=== PATIENT | male | born 1955 | race Caucasian/White ===

== ENCOUNTER 2018-10-15 02:03 | Observation (INO) ==
[2018-10-15] MEDS ORDERED: ONDANSETRON 4 MG/2 ML VIAL IV ONE (02:11)
[2018-10-15] MEDS ORDERED: CLINDAMYCIN 600 MG in DEXTROSE 5% IN WATER 50 ML IV ONE (02:11)
[2018-10-15] MEDS: HYDROmorphone 2 MG/ML VIAL IV PRN ×2 (02:22→02:45)
[2018-10-15] MEDS: LACTATED RINGERS 1,000 ML IV SCH ×3 (02:32→16:06)
[2018-10-15 03:00] LABS: Basophils # (Auto) 0 K/mcL (0.0-0.3); Basophils % (Auto) 0.3 % (0.0-2.0); Eosinophils # (Auto) 0.1 K/mcL (0.0-0.7); Eosinophils % (Auto) 0.4 % (0.0-7.0); Granulocytes % (Auto) 65.5 % (38.0-78.0); Lymphocytes % (Auto) 22.1 % (15.5-49.0); Mean Cell Volume 85.8 fL (80.0-100.0); Mean Corpuscular HGB Conc 33.3 g/dL (31.0-36.0); Monocytes # (Auto) 1.6 K/mcL (0.1-0.9); Monocytes % (Auto) 11.7 % (1.0-12.0); Platelet Count 256 K/mcL (140-440); RBC 5.25 M/mcL (4.50-5.90); Red Cell Distribution Width 13.5 % (11.5-14.5)
[2018-10-15 03:26] LABS: ALT/SGPT 24 U/l (0-40); Albumin 4.2 gm/dL (3.2-5.2); Albumin/Globulin Ratio 1.3 (1.0-2.3); Alkaline Phosphatase 79 U/L (39-117); Blood Urea Nitrogen 19 mg/dl (8-23)
--- NOTE | 2018-10-15 06:45 | Emergency Department Note ---
General Adult HPI - General Chief complaint: Extremity Problem,Nontraumatic Stated complaint: right knee pain Time Seen by Provider: 10/15/18 02:11 Source: patient Mode of arrival: wheelchair Limitations: no limitations - History of Present Illness HPI Narrative: This patient was seen in the emergency room and discharged home with septic arthritis of the right knee. He has plan to call Dr. Ibarra in the morning however the pain became unbearable so he returned to emergency room and is happy to have Dr. Hitchcock admit him for washout in the morning. - Related Data Home Medications Medication Instructions Recorded Confirmed amlodipine 5 mg tablet 5 mg PO QDAY 08/01/18 10/15/18 aspirin 81 mg tablet,delayed 81 mg PO QDAY 08/01/18 10/15/18 release atorvastatin 10 mg tablet 10 mg PO QDAY 08/01/18 10/15/18 duloxetine 20 mg capsule,delayed 40 mg PO QDAY 08/01/18 10/15/18 release hydrochlorothiazide 25 mg tablet 12.5 mg PO QDAY 08/01/18 10/15/18 Methocarbamol [Robaxin-750] 750 mg PO Q6HP PRN 10/14/18 10/15/18 Allergies Allergy/AdvReac Type Severity Reaction Status Date / Time No Known Drug Allergies Allergy Unverified 08/13/18 11:23 Review of Systems All systems ED: reviewed and negative except as stated. Past Medical History - Past Medical History PMF Narrative: Medical History (Last Reviewed 08/13/18 @ 11:25 by Tere Valdes RN) Abnormal ECG (Chronic) Left anterior fascicular block (Chronic) Incomplete right bundle branch block (Chronic) Pulmonary disease (Chronic) Actinic keratitis (Chronic) Bereavement (Chronic) Alcohol abuse (Chronic) Hearing loss (Chronic) Basal cell carcinoma (Chronic) Hypertension (Chronic) Genital warts (Chronic) DJD (degenerative joint disease) of knee (Chronic) Low vitamin D level (Chronic) PTSD (post-traumatic stress disorder) (Chronic) Depression (Chronic) ASCVD (arteriosclerotic cardiovascular disease) (Chronic) CKD (chronic kidney disease), stage III (Chronic) Lower urinary tract symptoms (LUTS) (Chronic) Frequency of urination (Chronic) Urgency of urination (Chronic) Incomplete emptying of bladder (Chronic) Nocturia (Chronic) Elevated PSA (Chronic) Past Surgical History (Last Reviewed 08/13/18 @ 11:25 by Tere Valdes RN) History of colonoscopy (Acute) History of appendectomy (Chronic) Family History (Last Reviewed 08/13/18 @ 11:25 by Tere Valdes RN) Brother Colon cancer Mother Alzheimer disease Father Heart failure Surgical history ED: Reports: knee replacement - Social History smoking status: Never smoker Physical Exam Right knee is less swollen than it was prior to the aspiration in a couple of hours ago. Limitations: no limitations General appearance: alert Head: atraumatic Neurological: Present: alert Psychiatric: Present: normal affect Skin: Present: warm, dry Course Vital Signs Temperature 97.4 F 10/15/18 02:04 Pulse Rate 71 10/15/18 02:04 Respiratory Rate 16 10/15/18 02:04 Pulse Oximetry (%) 99 10/15/18 02:04 Temperature 97.4 F 10/15/18 03:08 Pulse Rate 56 L 10/15/18 03:08 Respiratory Rate 16 10/15/18 03:08 Blood Pressure 168/100 10/15/18 03:08 Pulse Oximetry (%) 96 10/15/18 03:08 Medical Decision Making - Lab Data Result diagrams: 10/15/18 02:20 10/15/18 02:20 Lab Results 10/15/18 10/15/18 Range/Units 02:20 02:20 WBC 13.4 H (4.5-11.0) K/mcL RBC 5.25 (4.50-5.90) M/mcL Hgb 15.0 (13.5-16.5) g/dL Hct 45.1 (41.0-55.0) % MCV 85.8 (80.0-100.0) fL MCH 28.6 (26.0-34.0) pg MCHC 33.3 (31.0-36.0) g/dL RDW 13.5 (11.5-14.5) % Plt Count 256 (140-440) K/mcL MPV 9.0 (7.4-10.4) fL Gran % 65.5 (38.0-78.0) % Lymph % (Auto) 22.1 (15.5-49.0) % [place] % (Auto) 11.7 (1.0-12.0) % Eos % (Auto) 0.4 (0.0-7.0) % Baso % (Auto) 0.3 (0.0-2.0) % Gran # 8.8 H (1.8-8.0) K/mcL Lymph # (Auto) 3.0 (1.5-4.8) K/mcL [place] # (Auto) 1.6 H (0.1-0.9) K/mcL Eos # (Auto) 0.1 (0.0-0.7) K/mcL Baso # (Auto) 0 (0.0-0.3) K/mcL Sodium 137 (133-145) mmol/L Potassium 3.7 (3.3-5.1) mmol/L Chloride 97 (96-108) mmol/L Carbon Dioxide 22 (22-30) mmol/L Anion Gap 18.0 H (8-16) BUN 19 (8-23) mg/dl Creatinine 1.1 (0.7-1.2) mg/dl GFR Calculation 71 Glucose 119 H (70-105) mg/dL Calcium 9.3 (8.6-10.4) mg/dl Total Bilirubin 0.4 (0.0-1.0) mg/dL AST 15 (0-37) U/l ALT 24 (0-40) U/l Alkaline Phosphatase 79 (39-117) U/L Total Protein 7.4 (5.9-8.4) gm/dL Albumin 4.2 (3.2-5.2) gm/dL Globulin 3.2 (2.2-3.7) gm/dL Albumin/Globulin Ratio 1.3 (1.0-2.3) Disposition Pt seen by [facility] [employer]/PA only: No Clinical Impression: Septic arthritis of knee, right Disposition: Xfer As Outpt/Obs ([facility]) Condition: Good
[2018-10-15 07:00] LABS: Appearance,Urine CLEAR; Bacteria,Urine 0 /hpf (0); Bilirubin,Urine NEG (NEG); Color,Urine YELLOW; Glucose,Urine (UA) NEGATIVE (NEG); Leukocyte Esterase,Urine NEG /uL (NEG); Mucus,Urine FEW /hpf (0); Protein,Urine 30 mg/dL (NEG); Specific Gravity,Urine 1.019 (1.000-1.035); Urine Blood NEG mg/dL (<0.03); Urine Hyaline Cast 2 /lpf (0-2); Urine RBC < 1 /hpf (0-1); Urine Squamous Epithelial Cell < 1 /hpf (0-4); Urine WBC < 1 /hpf (0-4); Urobilinogen,Urine NEG (NEG)
[2018-10-15] MEDS ORDERED: COLCHICINE 0.6 MG TABLET PO ONE (07:18)
[2018-10-15] MEDS ORDERED: TRIAMCINOLONE ACETONIDE 40 MG/ML VIAL IM ONE (08:05)
[2018-10-15] MEDS ORDERED: DEXAMETHASONE 10 MG/ML VIAL IM ONE (08:07)
--- NOTE | 2018-10-15 08:16 | Consultation ---
DATE OF CONSULTATION: 10/15/2018 CHIEF COMPLAINT: Right knee hot swollen knee with gout or infection. HISTORY OF PRESENT ILLNESS: The patient was seen in the emergency room last night and had aspiration of the knee. The pain was so unbearable that he could not wait to see Dr. Vlilegas apparently and he presented to the emergency room. Given his options, he decided to stay overnight until we can determine what is going on. The fluid that was sent shows no organisms but there is no cell count or crystals evaluated. For that reason they are running that now. Visiting the patient, his pain is not controlled with IV medication and he said the knee filled back up with fluid after the recent aspiration by Dr. Cruz. He has not eaten or drank anything since last night and otherwise feels fairly good. He is unable to bear weight on the leg. He has had gout in his right toe in the recent past and it is probably associated. PAST MEDICAL HISTORY: He has otherwise been a fairly healthy individual with a prior history of surgery on the left knee with a total knee arthroplasty for which I believe Dr. Villegas is going to revise. SOCIAL HISTORY: He does not smoke or drink a significant amount, he says. ALLERGIES: NKA. PHYSICAL EXAMINATION: VITAL SIGNS: Stable with a temperature of 97.4, pulse 72, respiratory rate 12 to 16. Blood pressure is slightly elevated at 168/100. GENERAL: Very pleasant elderly male, alert, cooperative, in good spirits, in some significant pain. LUNGS: Clear to auscultation bilaterally. CARDIOVASCULAR: Regular rate and rhythm. No murmurs, rubs, or gallops. ABDOMEN: Soft, nontender. NECK: Supple. NEURO: He is alert. PSYCHIATRIC: He presents in normal affect but in some pain. SKIN: Without lacerations or cuts. There is little bit of erythema around the right knee, warm and dry throughout. EXTREMITIES: Examination of the right knee does demonstrate a large effusion within the knee, unable to bend the knee or move the knee or even stress the knee. He has pain with light touch to the knee and a very large effusion present. His toe, as well, on the right side is also swollen and red. There is good capillary refill, normal dorsal pedis pulse. GAIT: He is unable to ambulate because of the pain. LABORATORY DATA: He has a white blood cell count of 13.4 with no significant shift. His PMNs are nucleated cells of 65.5%, platelet count 256, hematocrit 45.1, BUN 19, creatinine 1.1, glucose level 119, slightly higher than what we would expect. Lab results from his knee does demonstrate no organisms seen on Gram stain, but they did not run the cell count or crystals, which has now been ordered to make sure that they can do from that batch of fluid. PLAN: Otherwise, we will aspirate the knee one more time and see if that does not help resolve his symptoms. If we can prove that this is gout or infection he will start on colchicine. At this point we will give him 0.6 mg, allow p.o. fluids clear for now as he is dehydrated. RBH:jeniffer Job ID: [id number] Doc ID: [id number] Dirk Albert MD
[2018-10-15 09:16] LABS: Lymphocytes,Synovial Fluid 1 %; Neutrophils,Synovial Fluid 97 % (0-25); Other Cells,Synovial Fluid 2 %
[2018-10-15] MEDS: oxyCODONE/APAP 5/325MG TABLET PO PRN ×3 (10:16→17:40)
[2018-10-15] MEDS ORDERED: ceFAZolin 1 GM VIAL IV ONE (16:37)
--- NOTE | 2018-10-15 16:46 | Discharge Summary ---
Ortho Discharge Plan - General - Patient Instructions Diet: Regular Diet Activity: activity as tolerated, weight bearing as tolerated Dressing Care: May shower in 2 days - Follow Up Plan Follow Up Appointments: Joe Morales ARNP [Primary Care Provider] - Disposition: Hospice - Home Prognosis: Good Rehab Potential: Good I certify that the patient requires SNF services: No Overall status at discharge: patient is progressing back to baseline - Orders For Discharge Prescriptions: oxyCODONE/APAP [Percocet 5-325 mg] 1 - 2 tab PO Q4HP PRN #30 tab PRN Reason: Pain Level 3-6 Additional Discharge Orders: Walker Location: None Selected
[2018-10-15 18:29] LABS: Appearance,Synovial Fluid CLOUDY; Color,Synovial Fluid YELLOW
[2018-10-15 19:15] LABS: Lymphocytes,Synovial Fluid 6 %; Neutrophils,Synovial Fluid 89 % (0-25); Other Cells,Synovial Fluid 5 %
== END 2018-10-15 17:43 | disposition hospice, home (50) ==
LOC: MEDSUR 02:03 → ED 02:03 → MEDSUR 03:08
PROVIDERS: ADMIT Orthopaedic Surgery; ATTEND Orthopaedic Surgery